=== PATIENT | male | born 1975 | race Caucasian/White ===

== ENCOUNTER 2022-11-25 08:29 | Day surgery (SDC) | payer BC, SELFPAY ==
[2022-11-23 08:33] VITALS: BMI 30.5
[2022-11-25 08:44] VITALS: BP 133/84; PULSE 74; RESP 18; TEMP 36.6; O2SAT 97
[2022-11-25] MEDS: sodium chloride 0.9% 1,000 ML 30 ML IV (08:57)
--- NOTE | 2022-11-25 08:58 | ANES.PREANE2 ---
Pre-Anesthetic Assessment Height/Weight: Height 1.83 m Weight 102.058 kg Temp Pulse Resp BP Pulse Ox O2 Del Method 97.8 F 74 18 133/84 97 11/25/22 08:44 11/25/22 08:44 11/25/22 08:44 11/25/22 08:44 11/25/22 08:44 11/25/22 08:44 Preop Diagnosis: screening Operation Date: 11/25/22 10:00 Proposed Procedures p Colonoscopy 25064, Z12.11(Not Applicable) - Anthony Tapia DO Familial anesthetic complications: none Was Beta Vitaliy taken within 24 hours: N/A Was Clonidine taken within 24 hours: N/A Last intake: Intake Last Liquid Date 11/24/22 Last Liquid Time 22:30 Last Solid Date 11/23/22 Last Solid Time 21:00 Social No alcohol and No tobacco dip Exam alert, oriented x 3, clear to auscultation bilaterally and regular rate & rhythm Airway Submandibular: within normal limits Cervical ROM: within normal limits Mallampati: Class I Dentition: full Pulmonary None reported CV/HEM None reported None reported Hepatic None reported GI None reported Metabolic None reported Musc/skel None reported Neuropsych None reported Anesthetic Plan ASA status: 1 Anesthesia: MAC Risk of > 500 ml blood loss (7ml/kg in children): No Medications/Allergies Home Medications Medication Instructions Recorded Confirmed Last Taken Type No Known Home Medications 11/02/22 11/23/22 Unknown History Allergies Allergy/AdvReac Type Severity Reaction Status Date / Time No Known Allergies Allergy Unverified 11/23/22 08:32 Current Medications Generic Name Dose Route Start Last Admin Trade Name Ghislaine PRN Reason Stop Dose Admin Sodium Chloride 1,000 mls @ 30 mls/hr 11/25/22 08:45 11/25/22 08:57 Sodium Chloride 0.9% IV 11/26/22 08:44 30 mls/hr .Q24H LOR Administration Data Anesthesia Cardiac Studies: No Data to Display
--- NOTE | 2022-11-25 10:19 | PM.HP ---
Providers/Chief Complaint Primary Care Provider: Figueroa Song Chief Complaint: Encounter for screening History of Present Illness Casper Lares is a 47 year old male who presents for his first screening colonoscopy. He denies any family history of colon cancer, abdominal pain, nausea, emesis, diarrhea, constipation, hematochezia and/or melena Medications/Allergies Home Medications Medication Instructions Recorded Confirmed Last Taken Type No Known Home Medications 11/02/22 11/23/22 Unknown History Allergies Allergy/AdvReac Type Severity Reaction Status Date / Time No Known Allergies Allergy Unverified 11/23/22 08:32 Vitals/I&O/Wt Last Vital Signs Temp 97.8 F 11/25/22 08:44 Pulse 74 11/25/22 08:44 Resp 18 11/25/22 08:44 BP 133/84 11/25/22 08:44 Pulse Ox 97 11/25/22 08:44 O2 Del Method 11/25/22 08:44 A&P Assessment and plan (1) Colon cancer screening: Plan Colonoscopy The risks and benefits of the procedure, including bleeding, infection, intestinal perforation requiring surgery, missed lesion were explained to the patient. The patient is understanding of the risks and wishes to proceed. Attestations Medical Necessity Statement*: Home Coding Level of Care Code Acute Code for Chg Fwd Diagnoses Colon cancer screening Z12.11
[2022-11-25 11:13] VITALS: BP 121/74; PULSE 63; RESP 12; TEMP 36.1; O2SAT 94
[2022-11-25 11:20] VITALS: BP 118/72; PULSE 52; RESP 12; O2SAT 95
[2022-11-25 11:28] VITALS: BP 133/96; PULSE 57; RESP 18; O2SAT 94
--- NOTE | 2022-11-25 13:58 | ANE.PACU2 ---
Inpatient post-anesthesia follow up: Airway intact: Yes Vital signs: Temperature 97.0 F Pulse Rate 57 Respiratory Rate 18 Blood Pressure 133/96 Pulse Oximetry 94 Oxygen Delivery Me thod Room Air Oxygen Flow Rate 2 Fraction of Inspir ed Oxygen Hydration adequate: Yes Nausea and vomiting: No Pain level: 1 Mental status: Baseline
== END 2022-11-25 11:44 | disposition home or self-care (01) ==
PROVIDERS: PCP Family Medicine; Visit Provider Surgery
PROC: 0DJD8ZZ Inspection of Lower Intestinal Tract, Via Natural or Artificial Opening Endoscopic (ICD-10-PCS; CPT 45378; principal; 2022-11-25 10:00)
DX: Z12.11 Encounter for screening for malignant neoplasm of colon (principal)
CPT/HCPCS: 45378; J2704; J7030